=== PATIENT | male | born 1965 | race Caucasian/White ===

== ENCOUNTER 2021-04-16 10:59 | Outpatient (CLI) | payer SELFPAY ==
[2021-04-16 12:57] LABS: Anion Gap 14 mmol/L (10-20); BUN (Urea Nitrogen) 15 mg/dL (8.4-25.7); Calc. Creatinine Clearance 0 mL/min (70-130); Calcium 9.1 mg/dL (7.8-10.44); Carbon Dioxide 26 mmol/L (22-29); Chloride 106 mmol/L (98-107); Glucose 93 mg/dL (70-105); Potassium 4.3 mmol/L (3.5-5.1); Sodium 142 mmol/L (136-145)
[2021-04-16 13:03] LABS: Hemoglobin 16.4 g/dL (13.5-17.5); Mean Corpuscular HGB CONC 32.3 g/dL (32.0-36.0); Mean Corpuscular Hemoglobin 29.3 pg (27.0-33.0); Mean Corpuscular Volume 90.5 fl (81.2-95.1); Mean Platelet Volume 10.5 fl (7.4-10.4); Platelet Count 277 10x3/uL (150-450); RBC Distribution Width 13.6 % (11.5-14.5); White Blood Cell (WBC) Count 11.7 10x3/uL (3.5-10.5)
[2021-04-17 11:37] LABS: SARS-CoV-2 PCR by NAA Not Detected (NotDetected)
== END 2021-04-16 11:00 | disposition home or self-care (01) ==
LOC: LABBT 10:59
PROVIDERS: ATTEND Neurological Surgery
DX: Z01.818 Encounter for other preprocedural examination (principal); M54.16 Radiculopathy, lumbar region; Z20.822 Contact with and (suspected) exposure to COVID-19
CPT/HCPCS: 80048; 85027; 93005; 93010; U0003; U0005

== ENCOUNTER 2021-07-09 11:36 | Outpatient (CLI) | payer OTHER ==
[2021-07-09 12:29] LABS: Hemoglobin 14.9 g/dL (13.5-17.5); Mean Corpuscular HGB CONC 33.3 g/dL (32.0-36.0); Mean Corpuscular Hemoglobin 29.1 pg (27.0-33.0); Mean Corpuscular Volume 87.3 fl (81.2-95.1); Mean Platelet Volume 9.7 fl (7.4-10.4); Platelet Count 255 10x3/uL (150-450); RBC Distribution Width 13.3 % (11.5-14.5); Red Blood Cell (RBC) Count 5.12 10x6/uL (4.32-5.72); White Blood Cell (WBC) Count 12.3 10x3/uL (3.5-10.5)
[2021-07-09 12:47] LABS: Anion Gap 13 mmol/L (10-20); BUN (Urea Nitrogen) 15 mg/dL (8.4-25.7); Calc. Creatinine Clearance 0 mL/min (70-130); Calcium 10.2 mg/dL (7.8-10.44); Carbon Dioxide 25 mmol/L (22-29); Chloride 106 mmol/L (98-107); Glucose 115 mg/dL (70-105); Potassium 3.8 mmol/L (3.5-5.1); Sodium 140 mmol/L (136-145)
[2021-07-10 02:13] LABS: SARS-CoV-2 PCR by NAA Not Detected (NotDetected)
== END 2021-07-09 11:37 | disposition home or self-care (01) ==
LOC: LABBT 11:36
PROVIDERS: ATTEND Neurological Surgery
DX: Z01.818 Encounter for other preprocedural examination (principal); M54.16 Radiculopathy, lumbar region; Z20.822 Contact with and (suspected) exposure to COVID-19
CPT/HCPCS: 80048; 85027; 93005; 93010; U0003; U0005

== ENCOUNTER 2021-07-14 06:12 | Day surgery (SDC) | payer OTHER ==
[2021-07-10 14:57] VITALS: BMI 31.0
[2021-07-14] MEDS ORDERED: Clindamycin/D5W 900 mg/50 ml Premix Bag ONE (06:24)
[2021-07-14] MEDS ORDERED: Levofloxacin 500 mg/D5W 100 ml Premix Bag ONE (06:24)
[2021-07-14] MEDS ORDERED: Fentanyl 250 MCG/5 ML VIAL ONE (07:15)
[2021-07-14] MEDS ORDERED: Ketamine 50 MG/ML (10ML VIAL) ONE (07:16)
[2021-07-14] MEDS ORDERED: Midazolam HCl 2 mg/2 ml Vial ONE (07:30)
[2021-07-14] MEDS ORDERED: Lidocaine 1% PF 5 ML VIAL ONE ×2 (07:32)
[2021-07-14] MEDS ORDERED: Ondansetron PF 4 MG/2 ML Vial ONE (07:32)
[2021-07-14] MEDS ORDERED: PROPOFOL 200 MG/20 ML VIAL ONE (07:32)
[2021-07-14] MEDS ORDERED: Ketorolac Tromethamine 30 MG/ML VIAL ONE (07:32)
[2021-07-14] MEDS ORDERED: Glycopyrrolate 0.2 MG/ML 5 ML SYRINGE ONE (07:32)
[2021-07-14] MEDS ORDERED: Rocuronium Bromide 10 MG/ML (10ML VIAL) ONE (07:32)
[2021-07-14] MEDS ORDERED: Dexamethasone 20 MG/5 ML VIAL ONE (07:32)
[2021-07-14] MEDS ORDERED: PHENYLEPHRINE-NS 100 MCG/ML 10 ML SYRINGE ONE (07:32)
[2021-07-14] MEDS ORDERED: HYDROcodone/Acetaminophen 5/325 mg Tablet ONE (10:59)
[2021-07-14] MEDS ORDERED: Tamsulosin HCl 0.4 MG CAP ONE (11:00)
[2021-07-14] MEDS ORDERED: Morphine 2 MG/ML VIAL ONE (11:28)
== END 2021-07-14 12:50 | disposition home or self-care (01) ==
LOC: SDC 06:12
PROVIDERS: ATTEND Neurological Surgery
PROC: 0SG3071 Fusion of Lumbosacral Joint with Autologous Tissue Substitute, Posterior Approach, Posterior Column, Open Approach (ICD-10-PCS; principal; 2021-07-14)
DX: M51.17 Intervertebral disc disorders with radiculopathy, lumbosacral region (principal); M51.16 Intervertebral disc disorders with radiculopathy, lumbar region; E78.5 Hyperlipidemia, unspecified; I42.9 Cardiomyopathy, unspecified; I10 Essential (primary) hypertension; F17.200 Nicotine dependence, unspecified, uncomplicated; Z79.899 Other long term (current) drug therapy; Z88.0 Allergy status to penicillin
CPT/HCPCS: 76000; C1713; C1768; J1100; J1885; J1956; J2250; J2270; J2405; J2704; J3010; J3370; J3490

== ENCOUNTER 2021-07-31 12:38 | Outpatient (CLI) | payer OTHER | END 2021-07-31 12:39 | disposition home or self-care (01) | LOC: TBSIIMAG 12:38 | PROVIDERS: ATTEND Physician Assistant | DX: M54.16 Radiculopathy, lumbar region (principal); Z98.1 Arthrodesis status | CPT/HCPCS: 72100 ==

== ENCOUNTER 2021-10-08 12:37 | Outpatient (CLI) | payer OTHER | END 2021-10-08 12:38 | disposition home or self-care (01) | LOC: TBSIIMAG 12:37 | PROVIDERS: ATTEND Neurological Surgery | DX: M47.26 Other spondylosis with radiculopathy, lumbar region (principal) | CPT/HCPCS: 72100 ==

== ENCOUNTER 2023-08-21 13:51 | Observation (INO) | payer OTHER ==
[2023-08-21] MEDS ORDERED: Famotidine/PF 20 mg/2ml Vial ONE ×2 (14:57→14:59)
[2023-08-21] MEDS ORDERED: Bicitra 30 ML UDCUP ONE (14:57)
[2023-08-21] MEDS ORDERED: Midazolam HCl 2 mg/2 ml Vial ONE (16:44)
[2023-08-21] MEDS ORDERED: Phenylephrine 10 MG/ML VIAL ONE (16:45)
[2023-08-21] MEDS ORDERED: fentaNYL PF 100 MCG/2 ML SYRINGE ONE (16:45)
[2023-08-21] MEDS ORDERED: Bupivacaine 0.25% HCL 30 ML VIAL ONE (16:56)
[2023-08-21] MEDS ORDERED: EPINEPHrine 1 MG/ML AMP ONE (17:00)
[2023-08-21] MEDS ORDERED: LevoFLOXacin 500 mg/D5W 100 ML BAG ONE (17:08)
[2023-08-21] MEDS ORDERED: Clindamycin/D5W 900 mg/50 ml Premix Bag ONE (17:08)
[2023-08-21] MEDS ORDERED: Ondansetron PF 4 MG/2 ML Vial ONE (17:16)
[2023-08-21] MEDS ORDERED: PROPOFOL 200 MG/20 ML VIAL ONE (17:16)
[2023-08-21] MEDS ORDERED: Dexamethasone 20 MG/5 ML VIAL ONE (17:16)
[2023-08-21] MEDS ORDERED: PHENYLEPHRINE-NS 100 MCG/ML 10 ML SYRINGE ONE (17:16)
[2023-08-21] MEDS ORDERED: Lidocaine 1% PF 5 ML VIAL ONE (17:16)
[2023-08-21] MEDS ORDERED: Rocuronium Bromide 10 MG/ML (10ML VIAL) ONE (17:16)
[2023-08-21] MEDS ORDERED: Albuterol HFA (OR) 200 PUFF INH ONE (17:24)
[2023-08-21] MEDS ORDERED: SUGAMMADEX SODIUM 200 MG/2 ML VIAL ONE (18:17)
[2023-08-21] MEDS ORDERED: Dextrose 5% in Water 1,000 ML IV PRN (18:48)
[2023-08-21] MEDS ORDERED: Ondansetron PF 4 MG/2 ML Vial IVP PRN (18:48)
[2023-08-21] MEDS ORDERED: Promethazine HCl 25 MG/ML VIAL IM PRN ×2 (18:48)
[2023-08-21] MEDS ORDERED: Glucagon 1 MG/ML KIT IM PRN (18:48)
[2023-08-21] MEDS ORDERED: Ondansetron HCl/PF 4 MG/2 ML Vial IVP PRN (18:48)
[2023-08-21] MEDS ORDERED: Dextrose 50% Abboject 50 ML SYRINGE SLOW IVP PRN (18:48)
[2023-08-21] MEDS ORDERED: hydrALAZINE 20 MG/ML VIAL SLOW IVP PRN (18:48)
[2023-08-21] MEDS ORDERED: traMADol HCl 50 MG TAB PO PRN (18:53)
[2023-08-21] MEDS ORDERED: Ipratropium/Albuterol 3 ML NEB ONE (19:05)
[2023-08-21] MEDS ORDERED: fentaNYL 50 mcg/mL 1 mL Vial ONE ×3 (19:10→19:55)
[2023-08-21 21:01] VITALS: BMI 29.5
[2023-08-21] MEDS: Famotidine/PF 20 mg/2ml Vial SLOW IVP SCH (22:11)
[2023-08-21] MEDS: Famotidine 20 MG TAB PO SCH (22:11)
[2023-08-21] MEDS: Carvedilol 3.125 MG TAB PO SCH (22:11)
[2023-08-21] MEDS: Acetaminophen 325 MG TAB PO SCH (22:11)
[2023-08-21] MEDS: metroNIDAZOLE 500 MG in Premix 1 BAG IVPB SCH (22:21)
[2023-08-22] MEDS: Ketorolac Tromethamine 30 MG/ML VIAL IVP SCH ×2 (00:08→05:42)
[2023-08-22] MEDS: Acetaminophen 325 MG TAB PO SCH ×2 (03:37→08:59)
[2023-08-22] MEDS: metroNIDAZOLE 500 MG in Premix 1 BAG IVPB SCH (05:42)
[2023-08-22] MEDS ORDERED: Ipratropium/Albuterol 3 ML NEB NEB SCH (06:30)
[2023-08-22] MEDS: Famotidine 20 MG TAB PO SCH (09:00)
[2023-08-22] MEDS: Carvedilol 3.125 MG TAB PO SCH (09:00)
[2023-08-22] MEDS ORDERED: Fenofibrate Nanocrystallized 145 MG TAB PO SCH (09:00)
[2023-08-22] MEDS ORDERED: Rosuvastatin 20 MG TAB PO SCH (09:00)
[2023-08-22] MEDS: Famotidine/PF 20 mg/2ml Vial SLOW IVP SCH (09:00)
[2023-08-22 10:28] VITALS: BP 147/78; TEMP 98.7
[2023-08-22] MEDS ORDERED: LevoFLOXacin 500 mg/D5W 100 ML BAG IVPB SCH (17:00)
== END 2023-08-22 10:29 | disposition home or self-care (01) ==
LOC: SDC 13:51 → T4-B 18:48
PROVIDERS: ADMIT Surgery; ATTEND Surgery
PROC: 0DTJ4ZZ Resection of Appendix, Percutaneous Endoscopic Approach (ICD-10-PCS; principal; 2023-08-22)
DX: K35.32 Acute appendicitis with perforation, localized peritonitis, and gangrene, without abscess (principal); E78.5 Hyperlipidemia, unspecified; I11.0 Hypertensive heart disease with heart failure; I50.9 Heart failure, unspecified; F17.210 Nicotine dependence, cigarettes, uncomplicated
CPT/HCPCS: 88304; 94640; J0171; J1100; J1885; J1956; J2250; J2370; J2405; J2704; J3010; J3490; J7620; S0020; S0028

== ENCOUNTER 2024-03-28 07:55 | Outpatient (CLI) | payer OTHER ==
[2024-03-28] MEDS ORDERED: Regadenoson 0.4 MG/5 ML SYRINGE ONE (09:39)
== END 2024-03-28 07:56 | disposition home or self-care (01) ==
LOC: NM 07:55
PROVIDERS: ATTEND Internal Medicine Interventional Cardiology
DX: I25.118 Atherosclerotic heart disease of native coronary artery with other forms of angina pectoris (principal); I08.1 Rheumatic disorders of both mitral and tricuspid valves
CPT/HCPCS: 78452; 93017; 93306; A9502; J2785